=== PATIENT | female | born 1990 | race Hispanic/Latino ===

== ENCOUNTER 2019-09-16 20:29 | Inpatient (IN) | payer MEDICAID ==
[~2019-09-16] VITALS: Ht 162.6 cm; Wt 67.6 kg
[~2019-09-16 20:29] MED LIST: HYDR28OI10 TP; PREN-196 PO
[2019-09-16] MEDS ORDERED: LACTATED RINGERS 1000ML 1,000 ML IV PRN (20:46)
[2019-09-16 20:57] VITALS: BP 126/80
[2019-09-16] MEDS ORDERED: OXYTOCIN-LR 20 UNITS/1000 ML 1,000 ML IV SCH (21:00)
[2019-09-16 21:12] LABS: APPEARANCE,URINE Clear (CLEAR); BILIRUBIN,URINE Negative (NEGATIVE); COLOR,URINE Yellow (YELLOW); GLUCOSE, URINE (UA) Negative (NEGATIVE); KETONES,URINE Negative (NEGATIVE); LEUKOCYTE ESTERASE ,URINE Small (NEGATIVE); NITRATE,URINE Negative (NEGATIVE); OCCULT BLOOD,URINE Negative (NEGATIVE); PROTEIN,URINE Negative (NEGATIVE)
[2019-09-16 21:19] LABS: AMPHET/METH SCREEN,URINE NEGATIVE (NEGATIVE); BARBITURATE SCREEN, URINE NEGATIVE (NEGATIVE); BENZODIAZEPINES SCREEN,URINE NEGATIVE (NEGATIVE); CANNABINOID SCREEN,URINE NEGATIVE (NEGATIVE); COCAINE SCREEN,URINE NEGATIVE (NEGATIVE); OPIATE SCREEN,URINE NEGATIVE (NEGATIVE); PHENCYCLIDINE SCREEN,URINE NEGATIVE (NEGATIVE)
[2019-09-16 21:33] LABS: MEAN CORPUSCULAR HEMOGLOBIN 29.2 pg (27.0-33.0); MEAN CORPUSCULAR HGB CONC 32.9 g/dL (32.0-36.0); MEAN CORPUSCULAR VOLUME 88.8 fL (79-99); RED BLOOD CELL COUNT(AUTO) 3.94 MIL/uL (4.00-5.50); RED CELL DISTRIBUTION WIDTH 14.3 % (11.0-15.5)
[2019-09-16 21:48] LABS: BACTERIA,URINE Few /HPF (None Seen); CALCIUM OXALATE CRYSTALS,UR Few /LPF (None Seen); MUCUS,URINE Few LPF (None Seen); SQUAMOUS EPITHELIAL CELL,UR Few /HPF (0-2)
[2019-09-17] MEDS ORDERED: OXYTOCIN 10 USP UNITS/ML 20 UNIT in LACTATED RINGERS 1000ML 1,000 ML IV SCH (06:15)
[2019-09-17] MEDS ORDERED: OXYTOCIN-LR 20 UNITS/1000 ML 1,000 ML IV SCH ×2 (06:45→12:15)
[2019-09-17] MEDS ORDERED: MEPERIDINE-PF 50 MG/ML SYG IVP SCH (09:00)
[2019-09-17] MEDS ORDERED: PROMETHAZINE HCL 25 MG/ML 1ML AMPULE IM SCH (09:00)
[2019-09-17] MEDS ORDERED: LIDOCAINE HCL 1% 20 ML VIAL ONE (10:05)
[2019-09-17] MEDS ORDERED: METHYLERGONOVINE MALEATE 0.2 MG/1 ML ML ONE (11:33)
[2019-09-17] MEDS ORDERED: BENZOCAINE/LANOLIN/ALOE VERA 60 ML AEROSOL TP PRN (12:15)
[2019-09-17] MEDS ORDERED: WITCH HAZEL 1 PAD TP PRN (12:15)
[2019-09-17] MEDS ORDERED: MEASLES/MUMPS/RUBELLA VACCINE, LIVE 0.5 ML/VIAL SQ PRN (12:15)
[2019-09-17] MEDS ORDERED: ACETAMINOPHEN-CODEINE 300/30MG TAB PO PRN (12:15)
[2019-09-17] MEDS ORDERED: DIPH,PERTUSS(ACELL),TET VAC/PF 0.5 ML VIAL IM PRN (12:15)
[2019-09-17] MEDS ORDERED: LANOLIN 30GM OINTMENT TP PRN (12:15)
[2019-09-17] MEDS ORDERED: ACETAMINOPHEN 325 MG TAB PO PRN (12:15)
[2019-09-17 13:28] VITALS: BP 101/66
[2019-09-17] MEDS ORDERED: METHYLERGONOVINE MALEATE 0.2 MG/1 ML ML IM SCH (13:50)
[2019-09-17] MEDS: IBUPROFEN 600 MG TABLET PO PRN ×2 (16:05→23:50)
[2019-09-17 16:42] VITALS: BP 95/57
[2019-09-17 19:31] VITALS: BP 102/55
[2019-09-17] MEDS: DOCUSATE SODIUM 100 MG CAP PO SCH (21:32)
[2019-09-17 23:36] VITALS: BP 94/53
[2019-09-18 03:32] VITALS: BP 103/68
[2019-09-18 05:09] LABS: HEMATOCRIT 35.1 % (36-48); MEAN CORPUSCULAR HEMOGLOBIN 28.8 pg (27.0-33.0); MEAN CORPUSCULAR HGB CONC 32.5 g/dL (32.0-36.0); MEAN CORPUSCULAR VOLUME 88.6 fL (79-99); RED BLOOD CELL COUNT(AUTO) 3.96 MIL/uL (4.00-5.50); RED CELL DISTRIBUTION WIDTH 14.4 % (11.0-15.5); WHITE BLOOD COUNT (AUTO) 11.5 K/uL (4.8-10.8)
[2019-09-18 07:14] VITALS: BP 102/70
[2019-09-18] MEDS: DOCUSATE SODIUM 100 MG CAP PO SCH ×2 (08:21→20:52)
[2019-09-18] MEDS: IBUPROFEN 600 MG TABLET PO PRN (08:21)
[2019-09-18 09:12] LABS: HEPATITIS Bs ANTIGEN SCREEN P Negative (Negative)
--- NOTE | 2019-09-18 11:16 | NUR ---
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 This is third child for couple, son Adelso Mayen Jr, they have 2 girls 3 and 1 as well. Couple live with her mother Bonnie Burnham and pt's 23yro brother. Pt is a stay at home mom, has Medicaid and food stamp assistance. Will apply for WIC at [place]. Couple has basic items for baby and a car seat. [facility] baby [facility]. Couple has good support system in place. Mom reports hx of THC abuse 1 yr ago but denies any recent use or use during . Pt denies need for recourses for substance abuse. Pt also denies any hx of abuse, domestic violence, mental health, legal or CPS issues.
[2019-09-18 11:22] VITALS: BP 102/70
--- NOTE | 2019-09-18 11:30 | NUR ---
verbal and written discharge instructions given, informed of the follow up appointment, no prescription given. informed to call the doctor for future concerns. pt voiced understanding to all things discussed. Addendum: 09/18/19 at 1144 by SANDRA KING RN Amended: Links added.
[2019-09-18 17:10] VITALS: BP 114/76
[2019-09-18 19:16] VITALS: BP 106/58
[2019-09-18 23:15] VITALS: BP 104/70
[2019-09-19 03:50] VITALS: BP 115/72
[2019-09-19] MEDS: IBUPROFEN 600 MG TABLET PO PRN ×2 (04:23→09:25)
[2019-09-19 07:44] VITALS: BP 95/46
--- NOTE | 2019-09-19 08:05 | NUR ---
PATIENT ASSESSED AND DENIES ANY PROBLEMS. STATES BLEEDING IS SMALL AND NO DIZZINESS ON AMBULATION. PATIENT HAS NO IV LINE AND IS TOLERATING DIET WELL.
[2019-09-19] MEDS: DOCUSATE SODIUM 100 MG CAP PO SCH (09:25)
[2019-09-19 11:35] VITALS: BP 96/62
--- NOTE | 2019-09-19 13:30 | NUR ---
DR. DUFFY ROUNDED AND DISCHARGED PATIENT TO HOME. PATIENT STABLE AND RESTING IN BED.
--- NOTE | 2019-09-19 14:10 | NUR ---
SPOKE TO PATIENT AND INDICATED BABY WILL NOT BE DISCHARGED TO HOME DUE TO ELEVATED BILI. PATIENT MADE AWARE OF HER DISCHARGE WAS DONE ON PREVIOUS DAY AND IS CLEARED FOR DISCHARGE. PATIENT INSTRUCTED TO GO VISIT WITH BABY PRIOR TO DISCHARGE BUT CAN CHANGE INTO HER OWN CLOTHES.
--- NOTE | 2019-09-19 14:15 | NUR ---
PATIENT INDICATED HER BABY NOT GOING HOME TODAY PER DR. QUINN. INSTRUCTED PATIENT THAT SHE WAS ALREADY DISCHARGED AND COULD GO WHENEVER SHE IS READY. ENCOURAGED PATIENT TO GO VISIT WITH BABY BEFORE DISCHARGE, BUT SHE COULD CHANGE TO HER REGULAR CLOTHER.
--- NOTE | 2019-09-19 14:45 | NUR ---
PATIENT WAS TAKEN VIA W/C TO FAMILY VEHICLE AND WAS DISCHARGED TO HER SIGNIFICANT OTHER IN STABLE CONDITION.
== END 2019-09-19 14:45 | disposition home or self-care (01) | DRG 560 ==
LOC: EDH 20:29 → OBSVTOIN 21:00 → LDH 21:00 → WSH 09-17 13:25
PROVIDERS: ADMIT Obstetrics & Gynecology; ATTEND Obstetrics & Gynecology
PROC: 10E0XZZ Delivery of Products of Conception, External Approach (ICD-10-PCS; principal; 2019-09-17)
PROC: 3E0234Z Introduction of Serum, Toxoid and Vaccine into Muscle, Percutaneous Approach (ICD-10-PCS; 2019-09-17)
PROC: 3E0134Z Introduction of Serum, Toxoid and Vaccine into Subcutaneous Tissue, Percutaneous Approach (ICD-10-PCS; 2019-09-17)
PROC: 10907ZC Drainage of Amniotic Fluid, Therapeutic from Products of Conception, Via Natural or Artificial Opening (ICD-10-PCS; 2019-09-17)
DX: O62.2 Other uterine inertia (principal); Z37.0 Single live birth; Z23 Encounter for immunization; Z3A.39 39 weeks gestation of pregnancy
CPT/HCPCS: 36415; 80305; 81001; 85027; 86592; 86850; 86900; 86901; 87340; 90715; G0378; J2175; J2210; J2550; J2590; J7120

== ENCOUNTER 2021-01-01 13:25 | Inpatient (IN) | payer MEDICAID ==
[~2021-01-01] VITALS: Ht 162.6 cm; Wt 68.0 kg
[2021-01-01 13:27] VITALS: BP 122/83
[2021-01-01 14:27] LABS: HEMATOCRIT 37.9 % (36-48); MEAN CORPUSCULAR HEMOGLOBIN 28.8 pg (27.0-33.0); MEAN CORPUSCULAR HGB CONC 32.7 g/dL (32.0-36.0); MEAN CORPUSCULAR VOLUME 88.1 fL (79-99); RED BLOOD CELL COUNT(AUTO) 4.3 MIL/uL (4.00-5.50); RED CELL DISTRIBUTION WIDTH 15.5 % (11.0-15.5); WHITE BLOOD COUNT (AUTO) 8.7 K/uL (4.8-10.8)
[2021-01-01] MEDS ORDERED: LACTATED RINGERS 1000ML 1,000 ML IV PRN (14:30)
[2021-01-01] MEDS ORDERED: AMPICILLIN 2GM+NS 100ML 100 ML IV SCH (14:30)
[2021-01-01] MEDS ORDERED: PROMETHAZINE HCL 25 MG/ML 1ML AMPULE IM PRN (14:30)
[2021-01-01] MEDS ORDERED: NALOXONE HCL 0.4 MG/1 ML ML IV PRN (14:30)
[2021-01-01] MEDS ORDERED: LACTATED RINGERS 500 ML 500 ML IV PRN (14:30)
[2021-01-01] MEDS ORDERED: OXYTOCIN-LR 20 UNITS/1000 ML 1,000 ML IV SCH ×3 (14:30→20:00)
[2021-01-01] MEDS ORDERED: ROPIVACAINE 0.2% 100ML VIAL 100 ML EP SCH (14:30)
[2021-01-01] MEDS ORDERED: EPHEDRINE SULFATE 50 MG/ML AMPULE IVP PRN (14:30)
[2021-01-01] MEDS ORDERED: MEPERIDINE-PF 50 MG/ML SYG IVP PRN (14:30)
[2021-01-01] MEDS ORDERED: AMPICILLIN 1GM+NS 50ML 50 ML IV SCH (18:30)
[2021-01-01] MEDS ORDERED: METHYLERGONOVINE MALEATE 0.2 MG/1 ML ML ONE (19:38)
[2021-01-01] MEDS ORDERED: DIPH,PERTUSS(ACELL),TET VAC/PF 0.5 ML VIAL IM PRN (20:00)
[2021-01-01] MEDS ORDERED: LANOLIN 30GM OINTMENT TP PRN (20:00)
[2021-01-01] MEDS ORDERED: ACETAMINOPHEN 325 MG TAB PO PRN (20:00)
[2021-01-01] MEDS ORDERED: WITCH HAZEL 1 PAD TP PRN (20:00)
[2021-01-01] MEDS ORDERED: MEASLES/MUMPS/RUBELLA VACCINE, LIVE 0.5 ML/VIAL SQ PRN (20:00)
[2021-01-01] MEDS ORDERED: ACETAMINOPHEN WITH CODEINE 1 TAB TAB PO PRN (20:00)
[2021-01-01] MEDS ORDERED: BENZOCAINE/LANOLIN/ALOE VERA 60 ML AEROSOL TP PRN (20:00)
[2021-01-01] MEDS: DOCUSATE SODIUM 100 MG CAP PO SCH (21:14)
[2021-01-01 21:31] VITALS: BP 96/56
[2021-01-01 22:50] VITALS: BP 110/55
[2021-01-02 03:08] VITALS: BP 89/50
[2021-01-02] MEDS: IBUPROFEN 600 MG TABLET PO PRN ×2 (05:09→18:43)
[2021-01-02 06:42] LABS: HEMATOCRIT 33.7 % (36-48); MEAN CORPUSCULAR HEMOGLOBIN 28.1 pg (27.0-33.0); MEAN CORPUSCULAR HGB CONC 32.3 g/dL (32.0-36.0); MEAN CORPUSCULAR VOLUME 86.9 fL (79-99); RED BLOOD CELL COUNT(AUTO) 3.88 MIL/uL (4.00-5.50); RED CELL DISTRIBUTION WIDTH 15.4 % (11.0-15.5); WHITE BLOOD COUNT (AUTO) 10.8 K/uL (4.8-10.8)
[2021-01-02 08:00] VITALS: BP 99/63
[2021-01-02] MEDS ORDERED: MIDAZOLAM HCL 1 MG/ML 2ML VIAL ONE (08:34)
[2021-01-02] MEDS ORDERED: PROPOFOL 10 MG/ML 20ML VIAL IV ONE (08:35)
[2021-01-02] MEDS ORDERED: LIDOCAINE PF 100MG/5ML (2%) SYRINGE 5ML ONE (08:35)
[2021-01-02] MEDS: DOCUSATE SODIUM 100 MG CAP PO SCH (08:47)
[2021-01-02 12:10] VITALS: BP 103/64
[2021-01-02 16:00] VITALS: BP 105/82
[2021-01-02 19:40] VITALS: BP 106/71
[2021-01-03 08:13] LABS: HEPATITIS Bs ANTIGEN SCREEN P Negative (Negative)
== END 2021-01-02 20:17 | disposition home or self-care (01) | DRG 560 ==
LOC: EDH 13:25 → OBSVTOIN 13:26 → LDH 13:26 → WSH 22:46
PROVIDERS: ADMIT Obstetrics & Gynecology; ATTEND Obstetrics & Gynecology
PROC: 10907ZC Drainage of Amniotic Fluid, Therapeutic from Products of Conception, Via Natural or Artificial Opening (ICD-10-PCS; principal; 2021-01-01)
PROC: 10E0XZZ Delivery of Products of Conception, External Approach (ICD-10-PCS; 2021-01-01)
PROC: 3E0234Z Introduction of Serum, Toxoid and Vaccine into Muscle, Percutaneous Approach (ICD-10-PCS; 2021-01-01)
PROC: 3E033VJ Introduction of Other Hormone into Peripheral Vein, Percutaneous Approach (ICD-10-PCS; 2021-01-01)
DX: O99.824 Streptococcus B carrier state complicating childbirth (principal); O69.1XX0 Labor and delivery complicated by cord around neck, with compression, not applicable or unspecified; O71.82 Other specified trauma to perineum and vulva; Z37.0 Single live birth; Z3A.38 38 weeks gestation of pregnancy; Z23 Encounter for immunization; Z20.822 Contact with and (suspected) exposure to COVID-19
CPT/HCPCS: 36415; 85027; 86592; 86850; 86900; 86901; 87340; 90715; A4351; G0378; J0290; J2001; J2175; J2210; J2250; J2550; J2590; J2704